=== PATIENT | male | born 1995 | race African-American/Black ===

== ENCOUNTER 2017-06-21 15:32 | Emergency (ER) | payer BC ==
--- NOTE | 2017-06-21 16:06 | RAD ---
2 VIEWW CHEST: Date: 06/21/17 COMPARISON: None. HISTORY: Left-sided chest pain for 2 weeks. FINDINGS: Two views of the chest show normal sized cardiomediastinal silhouette. There is no evidence of consol idation, mass, or pleural effusion. The bones are unremarkable. IMPRESSION: No evidence of acute cardiopulmonary disease. POS: [facility]
[2017-06-21] MEDS ORDERED: Ketorolac Tromethamine 60 MG/2 ML VIAL ONE (16:31)
--- NOTE | 2017-06-23 15:02 | EKG ---
Test Reason : Blood Pressure : / mmHG Vent. Rate : 065 BPM Atrial Rate : 065 BPM P-R Int : 146 ms QRS Dur : 088 ms QT Int : 376 ms P-R-T Axes : 049 067 055 degrees QTc Int : 391 ms Normal sinus rhythm Minimal voltage criteria for LVH, may be normal variant Borderline ECG Confirmed by DENA LOZANO ([id number]), science editor LUCIANO GONZALEZ ([id number] on 06/23/2017 3:00:44 PM Referred By: Confirmed By:DENA LOZANO
== END 2017-06-21 16:37 | disposition home or self-care (01) ==
LOC: ERS 15:32
DX: M54.5 Low back pain (principal); F17.210 Nicotine dependence, cigarettes, uncomplicated
CPT/HCPCS: 71046; 93005; J1885

== ENCOUNTER 2017-07-24 15:43 | Emergency (ER) | payer BC ==
[2017-07-24 16:19] LABS: #Basophils 0.1 thou/uL (0.0-0.2); #Eosinphils 0.2 thou/uL (0.0-0.7); #Lymphocytes 2.2 thou/uL (1.20-3.40); #Monocytes 0.5 thou/uL (0.11-0.59); #Neutrophils 4.3 thou/uL (1.40-6.50); %Eosinophils 2.9 % (0.0-10.0); %Lymphocytes 29.8 % (21.0-51.0); %Monocytes 7.3 % (0.0-10.0); Mean Corpuscular HGB CONC 32.4 g/dL (32.0-36.0); Mean Corpuscular Hemoglobin 27.5 pg (27.0-31.0); Mean Platelet Volume 8.3 fL (7.4-10.4); Platelet Count 215 thou/uL (130-400); RBC Distribution Width 11.7 % (11.5-14.5); Red Blood Cell (RBC) Count 5.46 mill/uL (4.70-6.10); White Blood Cell (WBC) Count 7.4 thou/uL (4.8-10.8)
[2017-07-24 16:20] LABS: Bilirubin Negative (Negative); Blood, Urine Negative (Negative); Clarity CLEAR (Clear); Glucose, Urine (Dipstick) Negative (Negative); Leukocyte Negative (Negative); Nitrite Negative (Negative); Protein, Urine (Dipstick) Negative (Neg-Trace); Specific Gravity, Urine 1.024 (1.002-1.036); pH, Urine 6.5 (5.0-9.0)
[2017-07-24 16:44] LABS: ALT (SGPT) 39 U/L (8-55); AST (SGOT) 28 U/L (5-34); Albumin 4.7 g/dL (3.5-5.0); Alkaline Phosphatase 61 U/L (40-150); Anion Gap 12 mmol/L (10-20); BUN (Urea Nitrogen) 16 mg/dL (8.9-20.6); Bilirubin, Total 1.9 mg/dL (0.2-1.2); CK (CPK) 132 U/L (30-200); Calc. Creatinine Clearance 0 mL/min (70-130); Calcium 9.7 mg/dL (7.8-10.44); Carbon Dioxide 29 mmol/L (22-29); Chloride 101 mmol/L (98-107); Estimated GFR-MDRD Greater than 90; Globulin 3.3 g/dL (2.4-3.5); Glucose 94 mg/dL (70-105); Potassium 3.5 mmol/L (3.5-5.1); Sodium 138 mmol/L (136-145)
== END 2017-07-24 17:42 | disposition home or self-care (01) ==
LOC: ERS 15:43
DX: E86.0 Dehydration (principal); R10.9 Unspecified abdominal pain; F17.210 Nicotine dependence, cigarettes, uncomplicated
CPT/HCPCS: 80053; 81003; 82550; 85025; 96360

== ENCOUNTER 2017-09-23 15:17 | Emergency (ER) | payer BC ==
--- NOTE | 2017-09-23 16:14 | RAD ---
LEFT SHOULDER THREE VIEWS: 09/23/17 HISTORY: Pain. Lifting injury. COMPARISON: None. FINDINGS: Despite three views being performed, the glenohumeral joint space cannot be assessed. The humeral hea d appears to align with the glenoid. No obvious dislocation or fracture. IMPRESSION: Limited evaluation of the glenohumeral joint space. No obvious dislocation or fracture. POS: [facility]
[2017-09-23] MEDS ORDERED: Ketorolac Tromethamine 60 MG/2 ML VIAL ONE (16:28)
== END 2017-09-23 17:02 | disposition home or self-care (01) ==
LOC: ERS 15:17
DX: S43.422A Sprain of left rotator cuff capsule, initial encounter (principal); F17.210 Nicotine dependence, cigarettes, uncomplicated; X50.0XXA Overexertion from strenuous movement or load, initial encounter
CPT/HCPCS: 96372; J1885

== ENCOUNTER 2019-06-18 18:49 | Emergency (ER) | payer BC, SELFPAY | END 2019-06-18 19:30 | disposition home or self-care (01) | LOC: ERS 18:49 | DX: R59.0 Localized enlarged lymph nodes (principal); Z87.891 Personal history of nicotine dependence | CPT/HCPCS: 99283 ==

== ENCOUNTER 2019-06-26 22:36 | Emergency (ER) | payer SELFPAY ==
[2019-06-26] MEDS ORDERED: Ketorolac Tromethamine 30 MG/ML VIAL ONE (23:06)
== END 2019-06-26 23:23 | disposition home or self-care (01) ==
LOC: ERS 22:36
DX: M43.6 Torticollis (principal); F17.210 Nicotine dependence, cigarettes, uncomplicated
CPT/HCPCS: 96372; 99283; J1885

== ENCOUNTER 2019-07-19 23:01 | Emergency (ER) | payer SELFPAY ==
[2019-07-19] MEDS ORDERED: Azithromycin 250 MG TAB ONE (23:50)
[2019-07-19] MEDS ORDERED: cefTRIAXone\\ROCEPHIN 250 MG VIAL ONE (23:50)
[2019-07-19] MEDS ORDERED: Lidocaine 1% (PF) 30 ML VIAL ONE (23:51)
[2019-07-20] LABS: Bilirubin Negative (Negative); Blood, Urine Negative (Negative); Clarity Clear (Clear); Glucose, Urine (Dipstick) Normal (Negative); Leukocyte Negative Leu/uL (Negative); Nitrite Negative (Negative); Protein, Urine (Dipstick) 10 mg/dL (Neg-Trace); Urobilinogen 6 mg/dL (Less than 2)
[2019-07-21 22:38] LABS: Chlam.trachomatis by PCR,Urine Not Detected (NotDetected)
== END 2019-07-20 00:18 | disposition home or self-care (01) ==
LOC: ERS 23:01
DX: R30.0 Dysuria (principal); Z20.2 Contact with and (suspected) exposure to infections with a predominantly sexual mode of transmission; F17.210 Nicotine dependence, cigarettes, uncomplicated
CPT/HCPCS: 81003; 87491; 87591; 96372; 99283; J0696; J2001

== ENCOUNTER 2020-04-14 14:45 | Emergency (ER) | payer OTHER, SELFPAY ==
[2020-04-14 23:49] LABS: SARS-CoV-2 PCR by NAA Not Detected (NotDetected)
== END 2020-04-14 15:14 | disposition home or self-care (01) ==
LOC: ERS 14:45
DX: Z20.822 Contact with and (suspected) exposure to COVID-19 (principal); F17.210 Nicotine dependence, cigarettes, uncomplicated
CPT/HCPCS: 87635; 99283; U0003; U0005

== ENCOUNTER 2020-11-25 15:23 | Emergency (ER) | payer SELFPAY ==
[2020-11-25] MEDS ORDERED: Acetaminophen 500 MG TAB ONE (17:13)
[2020-11-26 11:38] LABS: SARS-CoV-2 PCR by NAA DETECTED (NotDetected)
== END 2020-11-25 18:47 | disposition home or self-care (01) ==
LOC: ERS 15:23
DX: U07.1 COVID-19 (principal); F17.210 Nicotine dependence, cigarettes, uncomplicated
CPT/HCPCS: 87081; 87430; 99283; U0003; U0005